=== PATIENT | female | born 1960 | race Caucasian/White ===

== ENCOUNTER 2018-10-08 09:43 | Emergency (ER) | payer BC ==
[2018-10-08] MEDS ORDERED: IBUPROFEN 400 MG TABLET PO ONE (10:02)
--- NOTE | 2018-10-08 10:04 | Emergency Department Record ---
History of Present Illness - General Chief complaint: Extremity Problem Stated complaint: RIGHT ARM AND FOOT INJURY Time Seen by Provider: 10/08/18 09:56 Source: Patient Mode of Arrival: Ambulatory Limitations: No limitations - History of Present Illness Initial comments: The patient is here due to R wrist and foot pain since falling off a stool about 2 feet this AM. She denies any head injury or any other pains. MD Complaint: Extremity pain Onset/Timin -: Days(s) Location: Right, Foot, Other History of Same: No Severity scale (1-10): 10 Quality: Sharp Consistency: Constant, Getting worse Improves with: Immobilization Associated Symptoms: Denies other symptoms - Related Data Allergies Allergy/AdvReac Type Severity Reaction Status Date / Time meperidine HCl [From Demerol] Allergy VOMITING Verified 10/08/18 09:50 prednisone Allergy HIVES Verified 10/08/18 09:50 sulfamethoxazole Allergy HIVES Verified 10/08/18 09:50 [From Bactrim] trimethoprim [From Bactrim] Allergy HIVES Verified 10/08/18 09:50 pantoprazole sodium AdvReac Severe HYPERSENSIT Verified 10/08/18 09:50 [From Protonix] IVITY Travel Screening - Travel/Exposure Within Last 30 Days Have you traveled within the last 30 days?: No - Travel/Exposure Within Last Year Have you traveled outside the [place] in the last year?: No - Additonal Travel Details Have you been exposed to anyone with a communicable illness?: No - Travel Symptoms Symptom Screening: None Review of Systems Constitutional: Denies: Chills, Fever Past Medical History - SOCIAL HISTORY Smoking Status: Current every day smoker Alcohol Use: Occasional Drug Use: None - RESPIRATORY Hx Respiratory Disorders: No - CARDIOVASCULAR Hx Cardio Disorders: Yes Hx Hypertension: Yes - NEURO Hx Neuro Disorders: No Comment:: Raynauds - GI Hx GI Disorders: Yes Hx Irritable Bowel: Yes Comment:: diverticulitis - Hx Genitourinary Disorders: No - ENDOCRINE Hx Endocrine Disorders: No - MUSCULOSKELETAL Hx Musculoskeletal Disorders: Yes Hx Fibromyalgia: Yes - PSYCH Hx Psych Problems: No - HEMATOLOGY/ONCOLOGY Hx Hematology/Oncology Disorders: No Family Medical History Any Significant Family History?: Yes Hx Cancer: Father Hx Diabetes: Grandparents Physical Exam - General General Appearance: Alert, Cooperative, No acute distress - Head Head exam: Atraumatic, Normocephalic - Eye Eye exam: Normal appearance, PERRL - Extremities Extremities exam: Normal inspection, Normal capillary refill, Tenderness (There is dorsal R foot tenderness and dorsal R wrist tenderness. There is no swelling , bruising, or erythema appreciated at the R wrist or foot. The R foot and wrist are NVI.), Other (There is no snuff box tenderness to the R wrist. The R ankle is nontender.). negative: Full ROM, Joint swelling - Neurological Neurological exam: negative: Motor sensory deficit Course Vital Signs 10/08/18 09:47 Temperature 98.5 F Pulse Rate 104 H Respiratory 20 Rate Blood Pressure 144/98 Pulse Ox 97 - Reevaluation(s) Reevaluation #1: I did discuss the neg xrays with the patient and the need for F/U with her PCP next week. 10/08/18 11:12 Medical Decision Making - Data Complexity MDM Data: X-Ray Ordered and/or Reviewed (R wrist and foot: Neg per Rad.) Disposition Disposition: Discharge Clinical Impression: Sprain of wrist, right Qualifiers: Encounter type: initial encounter Qualified Code(s): S63.501A - Unspecified sprain of right wrist, initial encounter Sprain of foot, right Qualifiers: Encounter type: initial encounter Qualified Code(s): S93.601A - Unspecified sprain of right foot, initial encounter Disposition: Home, Self-Care Condition: (2) Stable Instructions: Foot Sprain (ED), Wrist Sprain (ED) Additional Instructions: Please use Tylenol or Motrin for pain and wear the R wrist splint for a week. Ice and elevate the foot and wrist for 2 days and see your family doctor next week if not better. Return to the ER for any worsening symptoms. Forms: Patient Portal Access Time of Disposition: 11:14 Quality - Quality Measures Quality Measures: N/A - Blood Pressure Screening View Details: Yes Does Patient Have Any of the Following: No Blood Pressure Classification: Hypertensive Reading Systolic Measurement: 144 Diastolic Measurement: 98 Screening for High Blood Pressure: < First Hypertensive BP, F/U Documented > [ G8950] First Hypertensive Follow-up Interventions: Referral to alternative/primary care provider.
--- NOTE | 2018-10-09 08:13 | RADIOLOGY REPORT ---
EXAM: RIGHT WRIST HISTORY: PAIN. TECHNIQUE: Four views of the right wrist were performed. FINDINGS: No evidence of fracture or dislocation. No lytic or blastic lesion. IMPRESSION: NEGATIVE RIGHT WRIST EXAMINATION. JOB NUMBER: [id number] [facility]
--- NOTE | 2018-10-09 08:14 | RADIOLOGY REPORT ---
EXAM: RIGHT FOOT HISTORY: PAIN. TECHNIQUE: Three views of the right foot were performed. FINDINGS: No evidence of fracture or dislocation. No lytic or blastic lesion. IMPRESSION: NEGATIVE RIGHT FOOT EXAMINATION. JOB NUMBER: [id number] [facility]
== END 2018-10-08 11:24 | disposition home or self-care (01) ==
LOC: ER 09:43
DX: S63.501A Unspecified sprain of right wrist, initial encounter (principal); S93.601A Unspecified sprain of right foot, initial encounter; W17.89XA Other fall from one level to another, initial encounter; Y92.009 Unspecified place in unspecified non-institutional (private) residence as the place of occurrence of the external cause; I10 Essential (primary) hypertension; F17.210 Nicotine dependence, cigarettes, uncomplicated
CPT/HCPCS: 99283

== ENCOUNTER 2018-10-22 12:41 | Emergency (ER) | payer BC ==
--- NOTE | 2018-10-22 12:54 | Emergency Department Record ---
History of Present Illness - General Chief Complaint: Ankle/Foot Injury Stated Complaint: RT FOOT PAIN Time Seen by Provider: 10/22/18 12:43 Source: Patient, Family Mode of Arrival: Ambulatory Limitations: No limitations - History of Present Illness Initial Comments: 58 yo female presents with 2 weeks of foot pain after a fall off a stool. She states the pain is not improved. She presents today wearing a high healed boot. She states it hurts to walk and bear weight. She has not contacted PCP to this point for follow up. No redness, numbness or swelling. She indicates the pain is over the medial and lateral foot. Complaint: Foot injury -: Week(s) (2) Injury: Foot: Right Type of Injury: Other (fall off a stool) Place: Home Severity: Moderate Improves With: Immobilization Worsens With: Movement, Palpation, Weight bearing Context: Fall Other Symptoms: Other Associated Symptoms: Able to partially bear weight Treatments Prior to Arrival: Other (No treatment) - Related Data Allergies Allergy/AdvReac Type Severity Reaction Status Date / Time meperidine HCl [From Demerol] Allergy VOMITING Verified 10/22/18 12:47 prednisone Allergy HIVES Verified 10/22/18 12:47 sulfamethoxazole Allergy HIVES Verified 10/22/18 12:47 [From Bactrim] trimethoprim [From Bactrim] Allergy HIVES Verified 10/22/18 12:47 pantoprazole sodium AdvReac Severe HYPERSENSIT Verified 10/22/18 12:47 [From Protonix] IVITY Review of Systems Constitutional: Denies: Chills, Fever, Malaise, Weakness Eyes: Denies: Eye discharge, Eye pain, Photophobia, Vision change ENT: Denies: Congestion Respiratory: Denies: Cough Cardiovascular: Denies: Chest pain, Syncope Endocrine: Denies: Fatigue Gastrointestinal: Denies: Abdominal pain, Diarrhea, Nausea, Vomiting Genitourinary: Denies: Dysuria Musculoskeletal: Reports: As per HPI, Arthralgia. Denies: Joint swelling, Myalgia, Neck pain Skin: Denies: Bruising, Change in color, Rash Neurological: Denies: Headache, Numbness, Weakness Psychiatric: Denies: Anxiety Hematological/Lymphatic: Denies: Blood Clots, Easy bleeding, Easy bruising, Swollen glands Past Medical History - SOCIAL HISTORY Smoking Status: Current every day smoker Drug Use: None - RESPIRATORY Hx Respiratory Disorders: No - CARDIOVASCULAR Hx Cardio Disorders: Yes Hx Hypertension: Yes - NEURO Hx Neuro Disorders: No Comment:: Raynauds - GI Hx GI Disorders: Yes Hx Irritable Bowel: Yes Comment:: diverticulitis - Hx Genitourinary Disorders: No - ENDOCRINE Hx Endocrine Disorders: No - MUSCULOSKELETAL Hx Musculoskeletal Disorders: Yes Hx Fibromyalgia: Yes - PSYCH Hx Psych Problems: No - HEMATOLOGY/ONCOLOGY Hx Hematology/Oncology Disorders: No Family Medical History Hx Cancer: Father Hx Diabetes: Grandparents Physical Exam - General General Appearance: Alert, Oriented x3, Cooperative, No acute distress Limitations: No limitations - Head Head exam: Atraumatic, Normal inspection - Eye Eye exam: Normal appearance, PERRL. negative: Conjunctival injection - ENT ENT exam: Normal exam Ear exam: Normal external inspection Nasal Exam: Normal inspection - Neck Neck exam: Normal inspection - Cardiovascular Cardiovascular Exam: Regular rate, Normal rhythm Peripheral Pulses: 2+: Dorsalis Pedis (R) - Rectal Rectal exam: Deferred - exam: Deferred - Extremities Extremities exam: Normal inspection, Full ROM, Normal capillary refill, Tenderness. negative: Joint swelling, Pedal edema Image of Feet: 1 - tender medial foot and lateral foot, normal inspection, no swelling, no abnormal warmth or coolness, intact DP pulse, brisk CR, motor intact with foot/ toe flexion and extension. 2 - normal ispection - Neurological Neurological exam: Alert, Oriented X3 - Psychiatric Psychiatric exam: Normal affect, Normal mood. negative: Agitated, Anxious - Skin Skin exam: Dry, Intact, Normal color, Warm Course - Reevaluation(s) Reevaluation #1: 10/22/18 12:53 Repeat XR ordered Monster Boot and Crutches ordered 10/22/18 13:14 The repeat XR was read was reviewed. No changes from the prior. She will be referred to her doctor for further work up if needed after immobilization in a boot/crutches Disposition Disposition: Discharge Clinical Impression: Sprain of foot, right Qualifiers: Encounter type: initial encounter Qualified Code(s): S93.601A - Unspecified sprain of right foot, initial encounter Disposition: Home, Self-Care Condition: (1) Good Instructions: Foot Sprain (ED) Additional Instructions: Use the crutches to minimize weight bearing Use the boot for support and comfort You will need to call your doctor for a recheck If the pain persists you may need further work up or referrals Forms: Patient Portal Access Time of Disposition: 13:15 Quality - Quality Measures Quality Measures: N/A - Blood Pressure Screening Does Patient Have Any of the Following: Active Dx of HTN Blood Pressure Classification: Hypertensive Reading Systolic Measurement: 165 Diastolic Measurement: 115 Screening for High Blood Pressure: Patient Exclusion, Hx of HTN [G9744]
--- NOTE | 2018-10-24 20:24 | RADIOLOGY REPORT ---
EXAM: FOOT, RIGHT 3 VIEWS HISTORY: PERSISTENT ANTERIOR FOOT PAIN WITH SWELLING POST HYPEREXTENSION INJURY. TECHNIQUE: Three views of the right. COMPARISON: Three views of the right foot dated 10/08/2018. ENCOUNTER: Initial. FINDINGS: Diffuse osteopenia is redemonstrated. No acute fracture, dislocation , or destructive bone lesion is seen. Early osteoarthritic spurring of the first MTP joint questioned. The articular relations are otherwise maintained. No new soft tissue abnormality identified. IMPRESSION: OSTEOPENIA. NO ACUTE FRACTURE NOR DISLOCATION. JOB NUMBER: [id number] [facility]
== END 2018-10-22 13:46 | disposition home or self-care (01) ==
LOC: ER 12:41
DX: S93.601A Unspecified sprain of right foot, initial encounter (principal); W08.XXXA Fall from other furniture, initial encounter; Y92.009 Unspecified place in unspecified non-institutional (private) residence as the place of occurrence of the external cause; I10 Essential (primary) hypertension; F17.210 Nicotine dependence, cigarettes, uncomplicated
CPT/HCPCS: 99283

== ENCOUNTER 2018-12-28 12:56 | Emergency (ER) | payer BC ==
[2018-12-28] MEDS ORDERED: DIAZEPAM (VALIUM) 5MG/ML **10ML VIAL IM ONE (13:20)
[2018-12-28] MEDS ORDERED: KETOROLAC 30 MG/ML VIAL IM ONE (13:22)
--- NOTE | 2018-12-28 13:23 | Emergency Department Record ---
History of Present Illness - General Chief Complaint: Neck Injury/Pain Stated Complaint: PAIN,NECK/SPINE Time Seen by Provider: 12/28/18 13:14 Source: Patient Mode of Arrival: Ambulatory Limitations: No limitations - History of Present Illness Initial Comments: pt is c/o pain that started in her neck this am and has moved down to her scapular area. she has had similar bouts with fibromyalgia in the past. she says the pain is severe. no cp. pain increases with movement Onset/Timin -: Days(s) Place: Home Radiation: Left shoulder, Right shoulder, Upper back Severity: Severe Severity scale (1-10): >10 Quality: Sharp, Stabbing Consistency: Constant Improves With: None Worsens With: None Context: Unknown - Related Data Previous Rx's Medication Instructions Recorded Diazepam [Valium] 5 mg PO Q8H #10 tab 12/28/18 Hydrocodone/Acetaminophen [Arbuckle 1 each PO Q6HR #10 tablet 12/28/18 5-325 Tablet] Ibuprofen [Motrin 600Mg] 600 mg PO Q6H #20 tablet 12/28/18 Allergies Allergy/AdvReac Type Severity Reaction Status Date / Time meperidine HCl [From Demerol] Allergy VOMITING Verified 10/22/18 12:47 prednisone Allergy HIVES Verified 10/22/18 12:47 sulfamethoxazole Allergy HIVES Verified 10/22/18 12:47 [From Bactrim] trimethoprim [From Bactrim] Allergy HIVES Verified 10/22/18 12:47 pantoprazole sodium AdvReac Severe HYPERSENSIT Verified 10/22/18 12:47 [From Protonix] IVITY Travel Screening - Travel/Exposure Within Last 30 Days Have you traveled within the last 30 days?: No - Travel Symptoms Symptom Screening: None Review of Systems Reviewed: No additional complaints except as noted below Constitutional: Reports: As per HPI. Denies: Chills, Fever, Malaise, Night sweats, Weakness, Weight change Eyes: Reports: As per HPI. Denies: Eye discharge, Eye pain, Photophobia, Vision change ENT: Reports: As per HPI. Denies: Congestion, Dental pain, Ear pain, Epistaxis , Hearing loss, Throat pain Respiratory: Reports: As per HPI. Denies: Cough, Dyspnea, Hemoptysis, Stridor, Wheezes Cardiovascular: Reports: As per HPI. Denies: Arrhythmia, Chest pain, Dyspnea on exertion, Edema, Murmurs, Orthopnea, Palpitations, Paroxysmal nocturnal dyspnea, Rheumatic Fever, Syncope Endocrine: Reports: As per HPI. Denies: Fatigue, Heat or cold intolerance, Polydipsia, Polyuria Gastrointestinal: Reports: As per HPI. Denies: Abdominal pain, Constipation, Diarrhea, Hematemesis, Hematochezia, Melena, Nausea, Vomiting Genitourinary: Reports: As per HPI. Denies: Abnormal menses, Discharge, Dyspareunia, Dysuria, Frequency, Hematuria, Incontinence, Retention, Urgency Musculoskeletal: Reports: As per HPI, Myalgia, Neck pain. Denies: Arthralgia, Back pain, Gout, Joint swelling Skin: Reports: As per HPI. Denies: Bruising, Change in color, Change in hair/ nails, Lesions, Pruritus, Rash Neurological: Reports: As per HPI. Denies: Abnormal gait, Confusion, Headache, Numbness, Paresthesias, Seizure, Tingling, Tremors, Vertigo, Weakness Psychiatric: Reports: As per HPI. Denies: Anxiety, Auditory hallucinations, Depression, Homicidal thoughts, Suicidal thoughts, Visual hallucinations Hematological/Lymphatic: Reports: As per HPI. Denies: Anemia, Blood Clots, Easy bleeding, Easy bruising, Swollen glands Past Medical History - SOCIAL HISTORY Smoking Status: Current every day smoker Alcohol Use: Rare Drug Use: None - RESPIRATORY Hx Respiratory Disorders: No - CARDIOVASCULAR Hx Cardio Disorders: Yes Hx Hypertension: Yes (hx of HTN) - NEURO Hx Neuro Disorders: Yes Comment:: Raynauds - GI Hx GI Disorders: Yes Hx Irritable Bowel: Yes Comment:: diverticulitis - Hx Genitourinary Disorders: No - ENDOCRINE Hx Endocrine Disorders: No - MUSCULOSKELETAL Hx Musculoskeletal Disorders: Yes Hx Fibromyalgia: Yes - PSYCH Hx Psych Problems: No - HEMATOLOGY/ONCOLOGY Hx Hematology/Oncology Disorders: Yes Comment:: pt states borderline bleeder Family Medical History Any Significant Family History?: Yes Hx Cancer: Father Hx Diabetes: Grandparents Physical Exam - General General Appearance: Alert, Oriented x3, Cooperative, Mild distress - Head Head exam: Normal inspection - Eye Eye exam: Normal appearance, PERRL, EOMI Pupils: Normal accommodation - ENT ENT exam: Normal exam, Mucous membranes moist, Normal external ear exam, Normal orophraynx, TM's normal bilaterally Ear exam: Normal external inspection. negative: External canal tenderness Nasal Exam: Normal inspection. negative: Discharge, Sinus tenderness Mouth exam: Normal external inspection, Tongue normal Teeth exam: Normal inspection. negative: Dental caries Throat exam: Normal inspection. negative: Tonsillar erythema, Tonsillar exudate - Neck Neck exam: Normal inspection, Full ROM, Tenderness - Respiratory Respiratory exam: Normal lung sounds bilaterally. negative: Respiratory distress - Cardiovascular Cardiovascular Exam: Regular rate, Normal rhythm, Normal heart sounds - GI/Abdominal GI/Abdominal exam: Soft, Normal bowel sounds. negative: Tenderness - Rectal Rectal exam: Deferred - exam: Deferred - Extremities Extremities exam: Normal inspection, Full ROM, Normal capillary refill. negative: Tenderness - Back Back exam: Reports: Muscle spasm, Paraspinal tenderness, Tenderness, Other (pt has increased muschlar tension and tenderness along both scapular borders). Denies: Normal inspection, Full ROM, Rash noted - Neurological Neurological exam: Alert, CN II-XII intact, Normal gait, Oriented X3 - Psychiatric Psychiatric exam: Normal affect, Normal mood - Skin Skin exam: Dry, Intact, Normal color, Warm Course Vital Signs 12/28/18 12:57 Temperature 97.9 F Pulse Rate 103 H Respiratory 18 Rate Blood Pressure 150/100 Pulse Ox 96 - Reevaluation(s) Reevaluation #1: 12/28/18 15:47 pt feels better Disposition Disposition: Discharge Clinical Impression: Fibromyalgia affecting multiple sites, Torticollis, acute Thoracic myofascial strain Qualifiers: Encounter type: initial encounter Qualified Code(s): S29.019A - Strain of muscle and tendon of unspecified wall of thorax, initial encounter Disposition: Home, Self-Care Condition: (1) Good Instructions: Thoracic Back Strain (ED), Spasmodic Torticollis (ED), Fibromyalgia (ED) Additional Instructions: follow up with family doctor. return sooner if worse. moist heat and ice rotated Prescriptions: Hydrocodone/Acetaminophen [Arbuckle 5-325 Tablet] 1 each PO Q6HR #10 tablet Diazepam [Valium] 5 mg PO Q8H #10 tab Ibuprofen [Motrin 600Mg] 600 mg PO Q6H #20 tablet Forms: Patient Portal Access Quality - Quality Measures Quality Measures: N/A - Blood Pressure Screening Does Patient Have Any of the Following: No Blood Pressure Classification: Hypertensive Reading Systolic Measurement: 150 Diastolic Measurement: 100 Screening for High Blood Pressure: < First Hypertensive BP, F/U Documented > [ G8950] First Hypertensive Follow-up Interventions: Follow-up with rescreen GT 1 day and LT 4 weeks.
[2018-12-28] MEDS ORDERED: HYDROMORPHONE HCL 2 MG/ML VIAL IM ONE (14:22)
[2018-12-28] MEDS ORDERED: PROMETHAZINE HCL 25 MG/ML VIAL IM ONE (14:23)
--- NOTE | 2018-12-29 19:26 | RADIOLOGY REPORT ---
EXAM: CHEST 2 VIEWS HISTORY: COUGH. TECHNIQUE: Two views of the chest. COMPARISON: None. FINDINGS: Cardiac silhouette within normal size limits. No focal pulmonary consolidation. No pleural effusion or pneumothorax. IMPRESSION: NO ACUTE LUNG FINDINGS. JOB NUMBER: [id number] [facility]
== END 2018-12-28 16:05 | disposition home or self-care (01) ==
LOC: ER 12:56
DX: S29.019A Strain of muscle and tendon of unspecified wall of thorax, initial encounter (principal); M79.7 Fibromyalgia; M43.6 Torticollis; M25.511 Pain in right shoulder; M25.512 Pain in left shoulder; I10 Essential (primary) hypertension; F17.210 Nicotine dependence, cigarettes, uncomplicated; X50.0XXA Overexertion from strenuous movement or load, initial encounter; Y93.G1 Activity, food preparation and clean up; Y92.000 Kitchen of unspecified non-institutional (private) residence as the place of occurrence of the external cause
CPT/HCPCS: 71046; 96372; 99283; 99284; J1885; J2550; J3360